=== PATIENT | male | born 1995 | race Two or more races ===

== ENCOUNTER 2020-01-28 23:02 | Emergency (ER) | payer OTHER ==
[~2020-01-28] VITALS: Ht 165.1 cm; Wt 68.0 kg
[2020-01-29 01:08] LABS: Basophils # (auto) 0 10 ^3/uL (0-0.2); Basophils % (auto) 0.2 % (0.0-2.0); Eosinophils # (auto) 0 10 ^3/uL (0-0.8); Eosinophils % (auto) 0.2 % (0.0-7.0); Hemoglobin 15.2 g/dL (13.5-17.5); Lymphocytes # (auto) 0.7 10 ^3/uL (0.4-5.4); Lymphocytes % (auto) 5.4 % (10.0-50.0); Mean Corpuscular Hemoglobin 30.2 pg (28.0-32.0); Mean Corpuscular Hgb Conc. 34.6 g/dL (32.0-36.0); Mean Corpuscular Volume 87.4 fL (80.0-100.0); Monocytes # (auto) 0.7 10 ^3/uL (0-1.3); Monocytes % (auto) 6.1 % (0.0-12.0); Neutrophils # (auto) 10.7 10 ^3/uL (1.6-8.6); Neutrophils % (auto) 88.1 % (37.0-80.0); Nucleated Red Blood Cells % 0.1 %; Platelet Count (auto) 185 10^3/uL (140-450); Red Blood Cells 5.03 10^6/uL (4.5-5.90); Red Cell Distribution Width 13.1 % (11.8-14.3); White Blood Cell 12.2 10^3/uL (4.4-10.8)
[2020-01-29 01:27] LABS: Albumin 3.6 g/dL (3.4-5.0); BUN/Creatinine Ratio 9.8; Potassium 4.2 mmol/L (3.5-5.1)
[2020-01-29 01:30] LABS: Bilirubin, Total 0.3 mg/dL (0.2-1.0); Total Protein 7.3 g/dL (6.4-8.2)
[2020-01-29 01:38] LABS: Urine Bacteria NONE SEEN /hpf (None Seen); Urine Blood Negative /uL (Negative); Urine Hyaline Cast FEW /lpf (0 - 2); Urine Mucus FEW (None Seen); Urine Specific Gravity 1.029 (1.001-1.035); Urine WBC 4 /hpf (0 - 3)
[2020-01-29 01:58] LABS: Amphetamine Screen, Urine NEGATIVE (NEGATIVE); Barbiturate Scree,Urine NEGATIVE (NEGATIVE); Benzodiazephine Screen, Urine NEGATIVE (NEGATIVE); Cannabinoid Screen, Urine NEGATIVE (NEGATIVE); Cocaine Screen, Urine NEGATIVE (NEGATIVE); Opiate Scree,Urine NEGATIVE (NEGATIVE); Phencyclidine Screen, Urine NEGATIVE (NEGATIVE)
[2020-01-29 04:33] VITALS: BP 138/89
== END 2020-01-29 01:54 | disposition home or self-care (01) ==
LOC: ER 23:02 → EDBD 23:02 → ER 01-29 01:54
DX: T50.901A Poisoning by unspecified drugs, medicaments and biological substances, accidental (unintentional), initial encounter (principal); R41.82 Altered mental status, unspecified; F19.10 Other psychoactive substance abuse, uncomplicated; Y92.89 Other specified places as the place of occurrence of the external cause
CPT/HCPCS: 36415; 80053; 80307; 80320; 81001; 85025

== ENCOUNTER 2023-12-01 10:34 | Emergency (ER) | payer MEDICAID, OTHER ==
[~2023-12-01] VITALS: Ht 160 cm; Wt 71.3 kg
[2023-12-01 12:43] VITALS: BP 126/73; PULSE 100; RESP 12; TEMP 98.1; O2SAT 98
[2023-12-01] MEDS ORDERED: PROM1SOL4 PO (13:06)
[2023-12-01] MEDS ORDERED: AUG875T PO (13:06)
[2023-12-01] MEDS ORDERED: IBUP-1454 PO (13:06)
[2023-12-01] MEDS ORDERED: BENZ100C97 PO (13:06)
== END 2023-12-01 13:20 | disposition home or self-care (01) ==
LOC: ER 10:34
DX: B34.9 Viral infection, unspecified (principal)

== ENCOUNTER → 2025-03-15 | Day surgery (SDC) | payer MEDICAID ==
[2025-03-14 14:10] LABS: Hematocrit 49.7 % (41.0-53.0); Hemoglobin 17.6 g/dL (13.5-17.5); Mean Corpuscular Hemoglobin 29.8 pg (28.0-32.0); Mean Corpuscular Volume 84.3 fL (80.0-100.0); Nucleated Red Blood Cells % 0.1 %
[2025-03-14 14:15] LABS: Alanine Aminotransferase 29 U/L (7-40); Alkaline Phosphatase 115 U/L (46-116); Anion Gap 9 (5-15); BUN/Creatinine Ratio 5.2 (10.0-20.0); Calcium 9.5 mg/dL (8.7-10.4); Carbon Dioxide 29 mmol/L (20-31); Chloride 103 mmol/L (98-107); Glucose 91 mg/dL (74-106); Potassium 4.1 mmol/L (3.5-5.1); Sodium 141 mmol/L (136-145); Total Protein 7.6 g/dL (5.7-8.2)
[2025-03-14 14:16] LABS: Bilirubin, Total 0.7 mg/dL (0.2-1.0)
[2025-03-14 14:19] LABS: Albumin 4.9 g/dL (3.2-4.8); Blood Urea Nitrogen 5 mg/dL (9-23)
[2025-03-14 14:26] LABS: INR 1.03 (0.9-1.15); Partial Thromboplastin Time 33.3 SEC (24.5-34.5); Prothrombin Time 10.9 sec (9.3-11.8)
[2025-03-14 14:52] LABS: Urine Protein, UAD Negative (Negative)
[~2025-03-15] VITALS: Ht 162.6 cm; Wt 78.9 kg
[~2025-03-15] MED LIST: ALBUAER3 IN; ATOR10TA52 PO; BECL40AE11 IN; CHOL25CH3 PO; GLYCOPYRROLATE 0.2 MG/ML 1ML VIAL ONE; HYDROmorphone HCL 2 MG/ML VL/or syr IV PRN; KETAMINE 50mg/ML 1ml syringe ONE; KETOROLAC TROMETH 30 MG/ML 1ML VIAL ONE; LIDOCAINE 2% (LOCAL ANESTH.) PF 5ml SDV ONE; MIDAZOLAM HCL 2MG/2ML 2ml VIAL (1mg/ml) ONE; MONT-8 PO; ONDANSETRON HCL 4 MG/2 ML VIAL ONE; POVIDONE IODINE 10 % TOPICAL OINT 30GM TOP ONE; PROPOFOL 10 MG/ML 20 ML IV ONE; fentaNYL CITRATE 100 MCG/2 ML VL ONE
[2025-03-15] MEDS: ceFAZolin 2 GM/D5W50ml 50 ML IV ONE (07:25)
[2025-03-15] MEDS: LIDOCAINE W/ EPINEPHRINE 1% 20ML VIAL ONE (07:44)
[2025-03-15] MEDS: BUPIVACAINE 0.25% INJ 50ML VIAL ONE (07:44)
[2025-03-15] MEDS: ceFAZolin 1GM/50ML 50 ML IV ONE (07:55)
[2025-03-15 08:16] VITALS: TEMP 97.9; O2SAT 99
--- NOTE | 2025-03-15 08:26 | DVHOP2 ---
Operative Report - 2 Report Details Date: 03/15/25 Preop Diagnosis: LEFT POSTERIOR KNEE SEBACEOUS CYST Postop Diagnosis: LEFT POSTERIOR KNEE SEBACEOUS CYST Surgeon: Dr. Bartolo Gillespie Anesthesiologist: Dr. Sanchez Anesthesia: General Consent: The patient was informed of the risks and benefits of the procedure. These include but are not limited to complications of anesthesia, postoperative infection, incomplete relief of symptoms, recurrence of symptoms, damage to blood vessels, nerves and tendons, deep venous thrombosis, pulmonary embolism and possible need for repeat surgery in the future. Name of Procedure Performed excision of left posterior knee sebaceous cyst Procedure Details Procedure Details: Under the supervision of Dr. Dorsey The patient was brought into the operating room. Under adequate anesthesia the patient was placed in a right lateral position. The posterior knee and surrounding area was prepped and draped in a sterile fashion. Before incision the area was infiltrated with 1:1 0.25% and 1% lidocaine with epi. An incision was made and purulent material was expelled from the wound the sebaceous cyst sac was excised. The wound was than irrigated with 3 liters of saline and 1 gm Ancef. Closure of the skin was accomplished with 0 Prolene sutures. Dressings were applied. Patient tolerated the procedure well. All sponge , needle and blade counts correct. Patient was transferred to recovery without incident. Specimen: cyst sac Condition Good Disposition Home GEORGIA GILLESPIE NP Mar 15, 2025 08:26
[2025-03-15 09:25] VITALS: BP 144/93; PULSE 74; RESP 11; O2SAT 97
== END | disposition home or self-care (01) ==
LOC: SUR 06:11
PROVIDERS: ATTEND Surgery
DX: L72.0 Epidermal cyst (principal); J45.909 Unspecified asthma, uncomplicated; E78.00 Pure hypercholesterolemia, unspecified; Z79.899 Other long term (current) drug therapy; Z91.013 Allergy to seafood
CPT/HCPCS: 11404; 36415; 80053; 81001; 85025; 85610; 85730; 88305; J0690; J1100; J1885; J2003; J2250; J2405; J2704; J3010; J3490